=== PATIENT | female | born 1985 ===

== ENCOUNTER 2021-09-11 20:09 | Inpatient (IN) | payer BC, OTHER ==
[~2021-09-11 20:09] MED LIST: Heparin 1,000 UNITS/ML VIAL ONE; Iopamidol-370 76% 500 ML 1 ML ONE
[2021-09-11 21:15] LABS: Hemoglobin 14.4 g/dL (12.0-16.0); Mean Corpuscular HGB CONC 33.5 g/dL (32.0-36.0); Mean Corpuscular Hemoglobin 30.3 pg (27.0-31.0); Mean Corpuscular Volume 90.5 fL (78.0-98.0); Mean Platelet Volume 8.2 fL (7.4-10.4); Platelet Count 336 thou/uL (130-400); RBC Distribution Width 12.5 % (11.5-14.5); Red Blood Cell (RBC) Count 4.75 mill/uL (4.20-5.40)
[2021-09-11 21:27] LABS: ALT (SGPT) 50 U/L (8-55); AST (SGOT) 28 U/L (5-34); Albumin 3.7 g/dL (3.5-5.0); Alkaline Phosphatase 146 U/L (40-110); Anion Gap 17 mmol/L (10-20); BUN (Urea Nitrogen) 6 mg/dL (7.0-18.7); Calc. Creatinine Clearance 0 mL/min (70-130); Calcium 9.4 mg/dL (7.8-10.44); Carbon Dioxide 18 mmol/L (22-29); Chloride 104 mmol/L (98-107); Globulin 3.9 g/dL (2.4-3.5); Glucose 93 mg/dL (70-105); Lipase 31 U/L (8-78); Potassium 4.1 mmol/L (3.5-5.1); Protein, Total 7.6 g/dL (6.0-8.3); Sodium 135 mmol/L (136-145)
[2021-09-11] MEDS ORDERED: Ondansetron PF 4 MG/2 ML Vial ONE ×4 (21:29→21:32)
[2021-09-11] MEDS ORDERED: Morphine 4 MG/ML VIAL ONE ×2 (21:29→22:20)
[2021-09-11 21:39] LABS: Band 13 % (5-11); Lymphocytes 3 % (21-51); MDiff Complete? YES; Monocytes 14 % (0-10); Neutrophil 70 % (42-75); Platelet Morphology Comment Appears Adequate; RBC Morphology Normal
[2021-09-11 21:52] LABS: SARS-CoV-2 NAA Rapid Test Not Detected (NotDetected)
[2021-09-11 21:53] LABS: BHCG - Serum Negative (NEGATIVE); Pregs Control Background? CLEAR/WHITE (CLR/WHITE); Pregs Control Bar Appear? YES (CONTROL BAR)
[2021-09-11 22:33] LABS: Bacteria/HPF 2+ HPF (None Seen); Bilirubin 1+ (Negative); Blood, Urine 3+ (Negative); Clarity Clear (Clear); Glucose, Urine (Dipstick) Normal (Negative); Ketone, Urine 80 mg/dL (Negative); Leukocyte 25 Leu/uL (Negative); Mucous/LPF Rare LPF (<2+); Nitrite Negative (Negative); Protein, Urine (Dipstick) 50 mg/dL (Neg-Trace); Specific Gravity, Urine 1.032 (1.002-1.036); Squamous Epithelial 0-3 HPF (0-3); Urobilinogen 6 mg/dL (Less than 2)
[2021-09-11] MEDS ORDERED: Lorazepam 2 MG/ML VIAL ONE (22:33)
[2021-09-11] MEDS ORDERED: Fentanyl 100 MCG/2 ML VIAL ONE (22:33)
[2021-09-11] MEDS ORDERED: Piperacillin/Tazobactam 4.5 GM VIAL ONE (23:04)
[2021-09-11] MEDS ORDERED: Pantoprazole 40 MG VIAL IVP SCH (23:30)
[2021-09-12] MEDS ORDERED: Morphine 4 MG/ML VIAL SLOW IVP PRN (00:39)
[2021-09-12] MEDS ORDERED: Ondansetron ODT 4 MG TAB SL PRN (00:45)
[2021-09-12] MEDS: Sodium Chloride 0.9% 1,000 ML IV SCH ×2 (00:50→05:51)
[2021-09-12 01:27] VITALS: BMI 41.9
[2021-09-12] MEDS: Piperacillin/Tazobactam 3.375 GM in Sodium Chloride 0.9% 100 ML IVPB SCH ×3 (04:27→22:20)
[2021-09-12] MEDS: Ondansetron PF 4 MG/2 ML Vial IVP PRN ×3 (06:42→18:34)
[2021-09-12] MEDS ORDERED: Sodium Chloride 0.9% 500 ML IV SCH (07:30)
[2021-09-12] MEDS: Morphine 4 MG/ML VIAL SLOW IVP PRN ×3 (07:40→17:30)
[2021-09-12 08:40] LABS: #Eosinphils 0.1 thou/uL (0.0-0.7); #Lymphocytes 3.1 thou/uL (1.20-3.40); #Monocytes 1.6 thou/uL (0.11-0.59); #Neutrophils 8.5 thou/uL (1.40-6.50); %Basophils 0.2 % (0.0-1.0); %Lymphocytes 23.2 % (21.0-51.0); %Monocytes 12.1 % (0.0-10.0); %Neutrophils 63.4 % (42.0-75.0); Hemoglobin 12.3 g/dL (12.0-16.0); Mean Corpuscular HGB CONC 32.2 g/dL (32.0-36.0); Mean Corpuscular Hemoglobin 30.8 pg (27.0-31.0); Mean Corpuscular Volume 95.6 fL (78.0-98.0); Mean Platelet Volume 8.7 fL (7.4-10.4); Platelet Count 226 thou/uL (130-400); RBC Distribution Width 12.5 % (11.5-14.5); White Blood Cell (WBC) Count 13.4 thou/uL (4.8-10.8)
[2021-09-12] MEDS: D5 1/2 NS w/20 mEq KCL 1,000 ML IV SCH ×2 (08:45→17:25)
[2021-09-12 08:58] LABS: ALT (SGPT) 97 U/L (8-55); AST (SGOT) 107 U/L (5-34); Albumin 2.8 g/dL (3.5-5.0); Alkaline Phosphatase 176 U/L (40-110); Anion Gap 9 mmol/L (10-20); BUN (Urea Nitrogen) 5 mg/dL (7.0-18.7); Calc. Creatinine Clearance 180 mL/min (70-130); Calcium 8.3 mg/dL (7.8-10.44); Carbon Dioxide 23 mmol/L (22-29); Chloride 110 mmol/L (98-107); Glucose 73 mg/dL (70-105); Potassium 4.3 mmol/L (3.5-5.1); Protein, Total 5.8 g/dL (6.0-8.3); Sodium 138 mmol/L (136-145)
[2021-09-12] MEDS ORDERED: Pantoprazole 40 MG VIAL IVP SCH ×2 (09:00→21:15)
[2021-09-12] MEDS ORDERED: Piperacillin/Tazobactam 3.375 GM in Sodium Chloride 0.9% 100 ML IVPB SCH (12:00)
[2021-09-12] MEDS ORDERED: Ketorolac Tromethamine 30 MG/ML VIAL IVP SCH (21:15)
[2021-09-12] MEDS: Pantoprazole 40 MG VIAL IVP SCH (22:21)
[2021-09-13] MEDS: Ketorolac Tromethamine 30 MG/ML VIAL IVP SCH ×4 (00:28→17:48)
[2021-09-13] MEDS: D5 1/2 NS w/20 mEq KCL 1,000 ML IV SCH ×4 (00:28→20:32)
[2021-09-13] MEDS: Ondansetron PF 4 MG/2 ML Vial IVP PRN (00:33)
[2021-09-13] MEDS: Piperacillin/Tazobactam 3.375 GM in Sodium Chloride 0.9% 100 ML IVPB SCH ×3 (04:13→20:31)
[2021-09-13 06:08] LABS: #Basophils 0.1 thou/uL (0.0-0.2); #Eosinphils 0.3 thou/uL (0.0-0.7); #Lymphocytes 3.8 thou/uL (1.20-3.40); #Neutrophils 6.2 thou/uL (1.40-6.50); %Basophils 0.5 % (0.0-1.0); %Eosinophils 2.7 % (0.0-10.0); %Lymphocytes 33.1 % (21.0-51.0); %Monocytes 8.6 % (0.0-10.0); Hemoglobin 11.9 g/dL (12.0-16.0); Mean Corpuscular HGB CONC 32.3 g/dL (32.0-36.0); Mean Corpuscular Hemoglobin 30.4 pg (27.0-31.0); Mean Corpuscular Volume 94.3 fL (78.0-98.0); Mean Platelet Volume 8.2 fL (7.4-10.4); Platelet Count 282 thou/uL (130-400); RBC Distribution Width 12.7 % (11.5-14.5); White Blood Cell (WBC) Count 11.3 thou/uL (4.8-10.8)
[2021-09-13 06:33] LABS: ALT (SGPT) 71 U/L (8-55); AST (SGOT) 38 U/L (5-34); Albumin 2.8 g/dL (3.5-5.0); Alkaline Phosphatase 172 U/L (40-110); Anion Gap 9 mmol/L (10-20); BUN (Urea Nitrogen) 4 mg/dL (7.0-18.7); Bilirubin, Total 0.8 mg/dL (0.2-1.2); Calc. Creatinine Clearance 180 mL/min (70-130); Calcium 8.8 mg/dL (7.8-10.44); Carbon Dioxide 26 mmol/L (22-29); Chloride 109 mmol/L (98-107); Glucose 90 mg/dL (70-105); Potassium 3.9 mmol/L (3.5-5.1); Protein, Total 5.8 g/dL (6.0-8.3); Sodium 140 mmol/L (136-145)
[2021-09-13] MEDS: Pantoprazole 40 MG VIAL IVP SCH ×2 (10:32→20:30)
[2021-09-13] MEDS: Enoxaparin Sodium 40 MG/0.4 ML SYRINGE SC SCH (20:32)
[2021-09-14] MEDS: Ketorolac Tromethamine 30 MG/ML VIAL IVP SCH ×4 (00:05→19:14)
[2021-09-14] MEDS: Piperacillin/Tazobactam 3.375 GM in Sodium Chloride 0.9% 100 ML IVPB SCH ×3 (04:17→20:28)
[2021-09-14] MEDS: D5 1/2 NS w/20 mEq KCL 1,000 ML IV SCH ×2 (04:18→19:15)
[2021-09-14 06:13] LABS: #Basophils 0.1 thou/uL (0.0-0.2); #Eosinphils 0.3 thou/uL (0.0-0.7); #Monocytes 0.7 thou/uL (0.11-0.59); #Neutrophils 4.8 thou/uL (1.40-6.50); %Basophils 0.9 % (0.0-1.0); %Eosinophils 3.5 % (0.0-10.0); %Lymphocytes 33.7 % (21.0-51.0); %Monocytes 7.6 % (0.0-10.0); %Neutrophils 54.3 % (42.0-75.0); Hemoglobin 11.8 g/dL (12.0-16.0); Mean Corpuscular HGB CONC 32.9 g/dL (32.0-36.0); Mean Corpuscular Hemoglobin 30.6 pg (27.0-31.0); Mean Corpuscular Volume 92.8 fL (78.0-98.0); Mean Platelet Volume 8.5 fL (7.4-10.4); Platelet Count 311 thou/uL (130-400); RBC Distribution Width 12.6 % (11.5-14.5); Red Blood Cell (RBC) Count 3.85 mill/uL (4.20-5.40); White Blood Cell (WBC) Count 8.8 thou/uL (4.8-10.8)
[2021-09-14] MEDS: Lorazepam 2 MG/ML VIAL SLOW IVP PRN ×2 (08:09→20:30)
[2021-09-14] MEDS ORDERED: Multivit, Adult Inj 10 ML VIAL IV SCH (09:00)
[2021-09-14] MEDS ORDERED: Iopamidol-370 76% 500 ML 1 ML ONE (09:24)
[2021-09-14] MEDS: ADMIXTURE FEE IV SCH (11:06)
[2021-09-14] MEDS: MULTIVITAMINS IV SCH (11:06)
[2021-09-14] MEDS: SODIUM CHLORIDE IV SCH (11:06)
[2021-09-14] MEDS: Pantoprazole 40 MG VIAL IVP SCH ×2 (11:36→20:29)
[2021-09-14] MEDS: Enoxaparin Sodium 40 MG/0.4 ML SYRINGE SC SCH (20:29)
[2021-09-15] MEDS: Ketorolac Tromethamine 30 MG/ML VIAL IVP SCH (00:08)
[2021-09-15] MEDS: D5 1/2 NS w/20 mEq KCL 1,000 ML IV SCH ×3 (01:28→20:54)
[2021-09-15] MEDS: Piperacillin/Tazobactam 3.375 GM in Sodium Chloride 0.9% 100 ML IVPB SCH ×5 (03:53→22:00)
[2021-09-15] MEDS ORDERED: FLU VACC QS2021-22(6MOS UP)/PF 60 MCG/0.5 ML SYRINGE IM ONE (09:00)
[2021-09-15] MEDS: ADMIXTURE FEE IV SCH (09:59)
[2021-09-15] MEDS: MULTIVITAMINS IV SCH (09:59)
[2021-09-15] MEDS: SODIUM CHLORIDE IV SCH (09:59)
[2021-09-15] MEDS: Pantoprazole 40 MG VIAL IVP SCH ×2 (10:03→20:42)
[2021-09-15] MEDS: Enoxaparin Sodium 40 MG/0.4 ML SYRINGE SC SCH (20:42)
[2021-09-15] MEDS: Lorazepam 2 MG/ML VIAL SLOW IVP PRN (20:42)
[2021-09-16] MEDS: D5 1/2 NS w/20 mEq KCL 1,000 ML IV SCH ×4 (03:22→23:30)
[2021-09-16] MEDS: Lorazepam 2 MG/ML VIAL SLOW IVP PRN ×3 (03:22→21:32)
[2021-09-16] MEDS: Piperacillin/Tazobactam 3.375 GM in Sodium Chloride 0.9% 100 ML IVPB SCH ×3 (05:56→20:30)
[2021-09-16] MEDS ORDERED: Multivitamins, Adult 10 ML, TRACE ELEMENT CONCENTRATE 1 ML in D15W-AA 5% with Lytes 2,0... IV SCH (10:00)
[2021-09-16] MEDS ORDERED: Fat Emulsion 250 ML IVPB SCH (10:00)
[2021-09-16 10:24] LABS: Prothrombin Time 13.1 sec (12.0-14.7)
[2021-09-16 10:25] LABS: PTT 33.3 sec (22.9-36.1)
[2021-09-16] MEDS: Pantoprazole 40 MG VIAL IVP SCH ×2 (10:29→20:30)
[2021-09-16 10:34] LABS: ALT (SGPT) 38 U/L (8-55); AST (SGOT) 22 U/L (5-34); Albumin 3.4 g/dL (3.5-5.0); Alkaline Phosphatase 147 U/L (40-110); Anion Gap 16 mmol/L (10-20); BUN (Urea Nitrogen) Less than 4 mg/dL (7.0-18.7); Bilirubin, Total 0.6 mg/dL (0.2-1.2); Calc. Creatinine Clearance 163 mL/min (70-130); Calcium 9.2 mg/dL (7.8-10.44); Carbon Dioxide 21 mmol/L (22-29); Cardiac Risk 5.4 (Less than 4.5); Chloride 106 mmol/L (98-107); Cholesterol 136 mg/dl (< 200 Desired); Globulin 3.7 g/dL (2.4-3.5); Glucose 75 mg/dL (70-105); HDL Cholesterol 25 mg/dL (>60 Neg Risk); LDL Cholesterol, Calculated 84 mg/dL; Magnesium 1.8 mg/dL (1.6-2.6); Phosphorus 3.9 mg/dL (2.3-4.7); Potassium 3.5 mmol/L (3.5-5.1); Protein, Total 7.1 g/dL (6.0-8.3); Sodium 139 mmol/L (136-145); Triglycerides 133 mg/dL (Less than 150)
[2021-09-16] MEDS: Multivitamins, Adult 10 ML, TRACE ELEMENT CONCENTRATE 1 ML in D15W-AA 5% with Lytes 2,0... IV SCH (16:32)
[2021-09-16] MEDS: Fat Emulsion 250 ML IVPB SCH (16:32)
[2021-09-16] MEDS: Enoxaparin Sodium 40 MG/0.4 ML SYRINGE SC SCH (20:30)
[2021-09-17] MEDS: Piperacillin/Tazobactam 3.375 GM in Sodium Chloride 0.9% 100 ML IVPB SCH ×3 (05:17→20:40)
[2021-09-17] MEDS: Pantoprazole 40 MG VIAL IVP SCH ×2 (08:05→20:40)
[2021-09-17] MEDS: D5 1/2 NS w/20 mEq KCL 1,000 ML IV SCH ×3 (08:08→23:23)
[2021-09-17] MEDS: Multivitamins, Adult 10 ML, TRACE ELEMENT CONCENTRATE 1 ML in D15W-AA 5% with Lytes 2,0... IV SCH (15:20)
[2021-09-17] MEDS: Enoxaparin Sodium 40 MG/0.4 ML SYRINGE SC SCH (20:40)
[2021-09-17] MEDS: Lorazepam 2 MG/ML VIAL SLOW IVP PRN (21:55)
[2021-09-17] MEDS: Morphine 4 MG/ML VIAL SLOW IVP PRN (23:53)
[2021-09-18] MEDS ORDERED: Ondansetron ODT 4 MG TAB SL PRN (00:15)
[2021-09-18] MEDS: Ondansetron PF 4 MG/2 ML Vial IVP PRN ×4 (00:20→19:55)
[2021-09-18] MEDS: Morphine 4 MG/ML VIAL SLOW IVP PRN ×2 (03:52→20:54)
[2021-09-18] MEDS: Piperacillin/Tazobactam 3.375 GM in Sodium Chloride 0.9% 100 ML IVPB SCH ×3 (04:54→20:48)
[2021-09-18] MEDS: Pantoprazole 40 MG VIAL IVP SCH ×2 (08:06→20:49)
[2021-09-18] MEDS: D5 1/2 NS w/20 mEq KCL 1,000 ML IV SCH (08:12)
[2021-09-18] MEDS ORDERED: Iopamidol-370 76% 500 ML 1 ML ONE (11:14)
[2021-09-18] MEDS ORDERED: Lactated Ringer's 1,000 ML IV SCH (12:15)
[2021-09-18 12:41] LABS: #Basophils 0.1 thou/uL (0.0-0.2); #Eosinphils 0.3 thou/uL (0.0-0.7); #Lymphocytes 3.7 thou/uL (1.20-3.40); #Neutrophils 9.5 thou/uL (1.40-6.50); %Basophils 0.6 % (0.0-1.0); %Eosinophils 1.8 % (0.0-10.0); %Lymphocytes 23.9 % (21.0-51.0); %Monocytes 12.6 % (0.0-10.0); %Neutrophils 61.1 % (42.0-75.0); Hemoglobin 13.8 g/dL (12.0-16.0); Mean Corpuscular HGB CONC 32.5 g/dL (32.0-36.0); Mean Corpuscular Hemoglobin 30.2 pg (27.0-31.0); Mean Corpuscular Volume 92.8 fL (78.0-98.0); Mean Platelet Volume 7.5 fL (7.4-10.4); Platelet Count 444 thou/uL (130-400); RBC Distribution Width 12.7 % (11.5-14.5); Red Blood Cell (RBC) Count 4.58 mill/uL (4.20-5.40); White Blood Cell (WBC) Count 15.6 thou/uL (4.8-10.8)
[2021-09-18 13:04] LABS: ALT (SGPT) 90 U/L (8-55); AST (SGOT) 85 U/L (5-34); Albumin 3.4 g/dL (3.5-5.0); Alkaline Phosphatase 136 U/L (40-110); Anion Gap 14 mmol/L (10-20); BUN (Urea Nitrogen) 14 mg/dL (7.0-18.7); Bilirubin, Total 0.6 mg/dL (0.2-1.2); Calc. Creatinine Clearance 163 mL/min (70-130); Calcium 9.1 mg/dL (7.8-10.44); Carbon Dioxide 20 mmol/L (22-29); Chloride 109 mmol/L (98-107); Globulin 3.6 g/dL (2.4-3.5); Glucose 87 mg/dL (70-105); Magnesium 2.1 mg/dL (1.6-2.6); Potassium 4.7 mmol/L (3.5-5.1); Sodium 138 mmol/L (136-145)
[2021-09-18] MEDS: Multivitamins, Adult 10 ML, TRACE ELEMENT CONCENTRATE 1 ML in D15W-AA 5% with Lytes 2,0... IV SCH (14:32)
[2021-09-18] MEDS ORDERED: Sodium Chloride 0.9% 500 ML IV SCH (15:00)
[2021-09-18] MEDS: Albumin 25% 25 GM/100 ML BOT IVPB SCH ×2 (19:29→23:37)
[2021-09-18] MEDS: Lactated Ringer's 1,000 ML IV SCH (19:31)
[2021-09-18] MEDS: Enoxaparin Sodium 40 MG/0.4 ML SYRINGE SC SCH (20:49)
[2021-09-19] MEDS: Lactated Ringer's 1,000 ML IV SCH (04:15)
[2021-09-19] MEDS: Albumin 25% 25 GM/100 ML BOT IVPB SCH ×3 (05:03→17:51)
[2021-09-19] MEDS: Piperacillin/Tazobactam 3.375 GM in Sodium Chloride 0.9% 100 ML IVPB SCH ×2 (05:03→13:58)
[2021-09-19 05:17] LABS: #Basophils 0.1 thou/uL (0.0-0.2); #Eosinphils 0.4 thou/uL (0.0-0.7); #Lymphocytes 3.3 thou/uL (1.20-3.40); #Monocytes 1.3 thou/uL (0.11-0.59); #Neutrophils 4.6 thou/uL (1.40-6.50); %Basophils 0.7 % (0.0-1.0); %Eosinophils 4.5 % (0.0-10.0); %Lymphocytes 34.3 % (21.0-51.0); %Monocytes 13.2 % (0.0-10.0); %Neutrophils 47.3 % (42.0-75.0); Hemoglobin 12.2 g/dL (12.0-16.0); Mean Corpuscular HGB CONC 32.1 g/dL (32.0-36.0); Mean Corpuscular Hemoglobin 29.6 pg (27.0-31.0); Mean Corpuscular Volume 92.2 fL (78.0-98.0); Mean Platelet Volume 7.8 fL (7.4-10.4); Platelet Count 362 thou/uL (130-400); RBC Distribution Width 12.6 % (11.5-14.5); Red Blood Cell (RBC) Count 4.12 mill/uL (4.20-5.40); White Blood Cell (WBC) Count 9.6 thou/uL (4.8-10.8)
[2021-09-19 05:44] LABS: ALT (SGPT) 70 U/L (8-55); AST (SGOT) 49 U/L (5-34); Albumin 3.6 g/dL (3.5-5.0); Alkaline Phosphatase 103 U/L (40-110); Anion Gap 11 mmol/L (10-20); BUN (Urea Nitrogen) 13 mg/dL (7.0-18.7); Bilirubin, Total 0.6 mg/dL (0.2-1.2); Calc. Creatinine Clearance 171 mL/min (70-130); Carbon Dioxide 23 mmol/L (22-29); Chloride 107 mmol/L (98-107); Globulin 3.1 g/dL (2.4-3.5); Glucose 100 mg/dL (70-105); Magnesium 2.2 mg/dL (1.6-2.6); Potassium 3.9 mmol/L (3.5-5.1); Protein, Total 6.7 g/dL (6.0-8.3); Sodium 137 mmol/L (136-145)
[2021-09-19] MEDS: Pantoprazole 40 MG VIAL IVP SCH (09:14)
[2021-09-19] MEDS: Morphine 4 MG/ML VIAL SLOW IVP PRN (09:26)
[2021-09-19] MEDS ORDERED: Pantoprazole 80 MG in Sodium Chloride 0.9% 100 ML IVPB SCH (10:00)
[2021-09-19 11:49] LABS: SARS-CoV-2 PCR by NAA Not Detected (NotDetected)
[2021-09-19] MEDS: Multivitamins, Adult 10 ML, TRACE ELEMENT CONCENTRATE 1 ML in D15W-AA 5% with Lytes 2,0... IV SCH (15:04)
[2021-09-19] MEDS: Fat Emulsion 250 ML IVPB SCH (15:05)
[2021-09-19 15:24] VITALS: BP 113/67; TEMP 98.4
== END 2021-09-19 18:40 | disposition short-term general hospital (02) | DRG 393 ==
LOC: ERS 20:09 → SJJU 22:52 → ERS 09-12 00:21
PROVIDERS: ADMIT Surgery; ATTEND Surgery
PROC: 02H633Z Insertion of Infusion Device into Right Atrium, Percutaneous Approach (ICD-10-PCS; principal; 2021-09-16)
PROC: B5181ZA Fluoroscopy of Superior Vena Cava using Low Osmolar Contrast, Guidance (ICD-10-PCS; 2021-09-16)
PROC: B548ZZA Ultrasonography of Superior Vena Cava, Guidance (ICD-10-PCS; 2021-09-16)
PROC: 3E0436Z Introduction of Nutritional Substance into Central Vein, Percutaneous Approach (ICD-10-PCS; 2021-09-16)
DX: K95.81 Infection due to other bariatric procedure (principal); Z20.822 Contact with and (suspected) exposure to COVID-19; Z23 Encounter for immunization; A41.9 Sepsis, unspecified organism; K65.1 Peritoneal abscess; Z68.41 Body mass index [BMI] 40.0-44.9, adult; K91.840 Postprocedural hemorrhage of a digestive system organ or structure following a digestive system procedure; E03.9 Hypothyroidism, unspecified; F32.A Depression, unspecified; E66.01 Morbid (severe) obesity due to excess calories; Y84.8 Other medical procedures as the cause of abnormal reaction of the patient, or of later complication, without mention of misadventure at the time of the procedure; Z79.899 Other long term (current) drug therapy; Z79.890 Hormone replacement therapy; Z88.0 Allergy status to penicillin; Z83.3 Family history of diabetes mellitus; Z80.3 Family history of malignant neoplasm of breast
CPT/HCPCS: 0240U; 36415; 36569; 71045; 74160; 74177; 80053; 80061; 81003; 81015; 82550; 83605; 83690; 83735; 84100; 84134; 84484; 84703; 85025; 85610; 85730; 86850; 86900; 86901; 87040; 87086; 87324; 87449; 90471; 90686; 93005; 93010; 96365; 96375; 96376; C1751; C9113; G0008; J1644; J1650; J1885; J2060; J2270; J2405; J2543; J3010; J3411; J3480; J3490; J7030; J7050; J7120; P9047; Q9967; U0003; U0005